=== PATIENT | female | born 1970 | race Caucasian/White ===

== ENCOUNTER 2017-04-22 02:29 | Outpatient (CLI) | payer BC | END 2017-04-22 23:59 | disposition home or self-care (01) | LOC: DIABETIC 02:29 | PROVIDERS: ATTEND Specialist | DX: E11.65 Type 2 diabetes mellitus with hyperglycemia (principal) | CPT/HCPCS: G0108 ==

== ENCOUNTER 2017-06-20 04:45 | Outpatient (CLI) | payer BC | END 2017-06-20 23:59 | disposition home or self-care (01) | LOC: DIABETIC 04:45 | PROVIDERS: ATTEND Specialist | DX: E11.65 Type 2 diabetes mellitus with hyperglycemia (principal); E16.2 Hypoglycemia, unspecified | CPT/HCPCS: G0108 ==

== ENCOUNTER 2017-08-25 04:18 | Outpatient (CLI) | payer BC | END 2017-08-25 23:59 | disposition home or self-care (01) | LOC: DIABETIC 04:18 | PROVIDERS: ATTEND Specialist | DX: E11.649 Type 2 diabetes mellitus with hypoglycemia without coma (principal) | CPT/HCPCS: 97802 ==

== ENCOUNTER 2018-06-09 00:44 | Outpatient (CLI) | payer BC | END 2018-06-09 23:59 | disposition home or self-care (01) | LOC: DIABETIC 00:44 | PROVIDERS: ATTEND Specialist | DX: E11.65 Type 2 diabetes mellitus with hyperglycemia (principal); E16.2 Hypoglycemia, unspecified | CPT/HCPCS: 97802 ==